=== PATIENT | female | born 1955 ===

== ENCOUNTER → 2019-08-19 | Outpatient (CLI) | payer BC ==
[2019-08-19 18:56] LABS: Percent Saturation 50.9 % (15.0-50.0)
== END | disposition home or self-care (01) ==
LOC: LAB 15:00 → LAB SHORT 15:00
PROVIDERS: Internal Medicine Hematology & Oncology
DX: D50.9 Iron deficiency anemia, unspecified (principal); D51.8 Other vitamin B12 deficiency anemias
CPT/HCPCS: 82607; 82728; 82746; 83540; 83550

== ENCOUNTER 2020-02-03 11:59 | Day surgery (SDC) | payer MEDICARE, BC ==
[~2020-02-03 11:59] MED LIST: Aspir 8181 MG PO; CALC.25 PO; LAMICTAL ODT100 MG PO; LEVSOD75 PO; LOKELMA10 GM PO; SODBIC650 PO; TRIM100 PO
== END 2020-02-03 22:44 | disposition home or self-care (01) ==
LOC: MHTC 11:59
DX: N18.6 End stage renal disease (principal); Z53.9 Procedure and treatment not carried out, unspecified reason